=== PATIENT | female | born 1970 | race Caucasian/White ===

== ENCOUNTER 2017-12-03 07:44 | Emergency (ER) | payer MEDICARE, MEDICAID, SELFPAY ==
[2017-12-03 07:47] VITALS: BP 128/97; PULSE 103; RESP 18; TEMP 36.7; O2SAT 97; BMI 20.9
--- NOTE | 2017-12-03 07:52 | ED.GENADULT ---
HPI - General Adult General Chief complaint: Abdominal Pain Stated complaint: ULCER Time Seen by Provider: 12/03/17 07:52 Source: patient Mode of arrival: ambulatory Limitations: no limitations History of Present Illness HPI narrative: patient is a 47-year-old female here for evaluation of ulcer pain for the past 2 days. Patient is on omeprazole, Zantac, sucralfate on a daily basis. She states that for the past 2 days she has had worsening pain of her ulcer. She describes it is epigastric. Some nausea. No vomiting or diarrhea. She states that this is her ulcer pain. She states she has been seen multiple times for this in the past and has had her heart, gallbladder, pancreas all workup in the past. She states this is the exact ulcer pain that she normally gets. She states she normally goes to the hospital and gets a medicine that takes the pain away. Related Data Allergies Allergy/AdvReac Type Severity Reaction Status Date / Time zolpidem [From Ambien] Allergy Severe Nightmare Verified 12/03/17 08:08 methadone AdvReac Mild Dizziness Verified 12/03/17 08:09 Review of Systems Constitutional Denies fever(s) and Denies headache(s) ENT Ears, Nose, Mouth, and Throat: Denies headache(s) Cardiovascular Denies chest pain and Denies dyspnea Respiratory Denies dyspnea Gastrointestinal Gastrointestinal: Reports abdominal pain, Denies change in bowel habits, Denies diarrhea, Reports nausea and Denies vomiting Musculoskeletal Denies myalgias and Denies arthralgias Integumentary/Breasts Denies lesions and Denies rash Neurologic Denies headache(s) PFSH Medical History Bipolar 1 disorder (Acute) Drug abuse (Acute) Gastroesophageal reflux disease (Acute) Surgical History H/O ventricular septal defect repair (Acute) Social History Smoking Status: Never smoker Exam Initial Vital Signs Initial Vital Signs: Vital Signs Temperature 98.1 F 12/03/17 07:47 Pulse Rate 103 H 12/03/17 07:47 Respiratory Rate 18 12/03/17 07:47 Blood Pressure 128/97 H 12/03/17 07:47 Pulse Oximetry 97 12/03/17 07:47 Const General: cooperative, comfortable and No acute distress Orientation: alert, awake and oriented x3 Resp Effort & Inspection: normal respiratory effort Auscultation: clear to auscultation bilaterally Cardio Rate: tachycardic Rhythm: regular rhythm Pulses: radial pulses present GI Inspection: non-distended Palpation: soft, No firm and tender ( epigastric) Skin Lesions: no lesions Rashes: no rashes Neuro General: alert, awake and oriented x3 Extrem General: normal to inspection and capillary refill normal Psych Appearance: grossly normal Course Orders Ordered: ED Orders 12/03/17 09:05 Complete Blood Count AUTO DIFF Stat Comprehensive Metabolic Panel Stat Lipase Stat Pantoprazole Sodium 80 mg/ (Sodium Chloride) 100 mls @ 10 mls/hr IV NOW ONE Stop: 12/03/17 18:38 Last Infusion: 12/03/17 09:49 Dose: 0 mls/hr Admin: 12/03/17 09:22 Dose: 250 mls/hr Discontinued Medications Al Hydrox/Mg Hydrox/Simethicone 20 ml/ Lidocaine HCl 15 ml 0 ml PO NOW ONE Stop: 12/03/17 08:02 Last Admin: 12/03/17 08:10 Dose: 15 ml Vital Signs - 8 hr 12/03/17 07:47 12/03/17 09:28 Temperature 98.1 F Pulse Rate 103 H 95 H Respiratory Rate 18 16 Blood Pressure 128/97 H Blood Pressure [Left Arm] 146/96 H Pulse Oximetry 97 100 Medical Decision Making Lab Data Lab results reviewed: Yes I reviewed the patient's lab results. Result diagrams: 12/03/17 09:05 12/03/17 09:05 Lab Results 12/03/17 12/03/17 Range/Units 09:05 09:05 WBC 9.7 (4.5-11.0) X10^3/uL RBC 4.48 (4.0-5.2) X10^6/uL Hgb 12.5 (12.0-16.0) g/dL Hct 38.0 (36-46) % MCV 84.9 (80-100) fL MCH 27.9 (26-34) PG MCHC 32.9 (30-36) % RDW 16.1 H (11.6-14.8) % Plt Count 440 H (150-400) X10^3/uL Neut % (Auto) 60.9 (50-75) % Lymph % (Auto) 28.2 (25-40) % [place] % (Auto) 8.1 (3-14) % Eos % (Auto) 2.0 (2-4) % Baso % (Auto) 0.8 (0-2) % Neut # (Auto) 5900 (0524-2075) /uL Sodium 141 (137-145) mmol/L Potassium 4.0 (3.4-5.1) mmol/L Chloride 102 (98-107) mmol/L Carbon Dioxide 31 (22-32) mmol/L BUN 10 (7-17) mg/dL Creatinine 0.70 (0.52-1.04) mg/dL Estimated GFR > 60.0 (>60) mL/min BUN/Creatinine Ratio 14.3 (6-22) Glucose 94 (70-100) mg/dL Calcium 9.1 (8.4-10.2) mg/dL Total Bilirubin 0.3 (0.2-1.3) mg/dL AST 27 (14-36) IU/L ALT 23 (9-52) IU/L Alkaline Phosphatase 69 (38-126) U/L Total Protein 7.4 (6.3-8.2) g/dL Albumin 4.2 (3.5-5.0) g/dL Globulin 3.2 (1.7-4.1) g/dL Albumin/Globulin Ratio 1.3 (1.0-2.8) Lipase 176 (23-300) U/L MDM Narrative Medical decision making narrative: patient states that she has a history of gastric ulcers and this feels just like her gastric ulcer. The GI cocktail did little to help her symptoms. I did give her a bolus of Protonix and with these 2 medications she reported great improvement of her symptoms. Her labs were unremarkable. Low suspicion for ACS. She does have a members all, Zantac and Carafate prescriptions with her which she states she does take. Informed her that she needed to contact her primary care doctor to discuss the indications for referral to see Gastroenterology. She was given return precautions. She expressed understanding and agreement with plan. Discharge Plan Departure Patient Disposition: Home Clinical Impression: Abdominal pain, Gastric ulcer Instructions: DI for Abdominal Pain-Adult, DI for Gastric Ulcer Activity Restrictions/Additional Instructions: Today in the emergency department you were given a GI cocktail which included Maalox and viscous lidocaine. You were also given a medication called Protonix through the IV. I do recommend you contact your primary care doctor to discuss the indications for referral to see Gastroenterology. Continue to take all of your medications like we discussed.
[2017-12-03] MEDS: MAG HYDROX/ALUMINUM/SIMETH SUS 20 ML, LIDOCAINE VISCOUS 2% 15 ML PO (08:10)
--- NOTE | 2017-12-03 08:11 | PC.NURSE ---
pt inquiring places to rent, pt states she recieves disability, will get in touch with clinical social work aide.
--- NOTE | 2017-12-03 08:12 | PC.NURSE ---
cell phone [phone]
--- NOTE | 2017-12-03 08:16 | PC.NURSE ---
called social service and they will contact her.
[2017-12-03 09:11] LABS: Add Manual Diff / Slide Review NO; Basophils Percent Auto 0.8 % (0-2); Hemoglobin 12.5 g/dL (12.0-16.0); Lymphocytes Percent Auto 28.2 % (25-40); Mean Corpuscular HGB Conc 32.9 % (30-36); Mean Corpuscular Hemoglobin 27.9 PG (26-34); Mean Corpuscular Volume 84.9 fL (80-100); Monocytes Percent Auto 8.1 % (3-14); Neutrophils Absolute Auto 5900 /uL (3000-5900); Neutrophils Percent Auto 60.9 % (50-75); Platelet Count 440 X10^3/uL (150-400); Red Blood Cell Count 4.48 X10^6/uL (4.0-5.2); Red Cell Distribution Width 16.1 % (11.6-14.8); White Blood Cell Count 9.7 X10^3/uL (4.5-11.0)
[2017-12-03] MEDS: PANTOPRAZOLE 80 MG in SODIUM CHLORIDE 0.9% 100 ML 250 ML IV (09:22)
[2017-12-03 09:26] LABS: Alanine Aminotransferase 23 IU/L (9-52); Albumin 4.2 g/dL (3.5-5.0); Albumin Globulin Ratio 1.3 (1.0-2.8); Alkaline Phosphatase 69 U/L (38-126); Aspartate Aminotransferase 27 IU/L (14-36); BUN Creatinine Ratio 14.3 (6-22); Bilirubin Total 0.3 mg/dL (0.2-1.3); Blood Urea Nitrogen 10 mg/dL (7-17); Calcium 9.1 mg/dL (8.4-10.2); Carbon Dioxide 31 mmol/L (22-32); Chloride 102 mmol/L (98-107); Estimated Glomerular Filt Rate > 60.0 mL/min (>60); Globulin 3.2 g/dL (1.7-4.1); Glucose 94 mg/dL (70-100); HEMOLYSIS 31 (0-50); Lipase 176 U/L (23-300); Sodium 141 mmol/L (137-145); Total Protein 7.4 g/dL (6.3-8.2)
[2017-12-03 09:28] VITALS: BP 146/96; PULSE 95; RESP 16; O2SAT 100
[2017-12-03 10:17] VITALS: BP 145/93; PULSE 92; RESP 18; O2SAT 99
--- NOTE | 2017-12-03 15:39 | CM.SWNOTE ---
Presenting problem: SCARLETT was asked to follow up with this patient who came to the emergency room earlier today. She is homeless and was looking for resources. ED SNACK [employer] MIXER OPERATOR called and left a message asking her to return a call to this Sales Team Manager at the [facility] dept. If I don't hear back, I will call patient when I am on the schedule again next week. Thank you SCARLETT Wilson
== END 2017-12-03 10:18 | disposition home or self-care (01) ==
PROVIDERS: Emergency Provider Emergency Medicine
DX: K25.9 Gastric ulcer, unspecified as acute or chronic, without hemorrhage or perforation (principal)
CPT/HCPCS: 36591; 80053; 83690; 85025; 96365; 99283; 99284; C9113

== ENCOUNTER 2018-02-04 06:09 | Emergency (ER) | payer MEDICARE, OTHER, MEDICAID, SELFPAY ==
[2018-02-04 06:14] VITALS: BP 139/88; PULSE 120; RESP 24; TEMP 36.5; O2SAT 94; BMI 21.7
--- NOTE | 2018-02-04 06:23 | ED_ITS ---
HPI - Anxiety General Chief Complaint: Anxiety Stated Complaint: Anxiety Time Seen by Provider: 02/04/18 06:15 Source: patient and EMS Mode of arrival: EMS Limitations: no limitations History of Present Illness HPI narrative: 47-year-old female, former smoker presents with EMS and a chief complaint of right-sided dental pain and anxiety. The patient has a longstanding history of anxiety and tried taking Vistaril at home with minimal relief. She states that she has had some dental pain and when she noticed which she thought was some swelling it made her very anxious and be came a worsening set of symptoms including shortness of breath, palpitations and nausea , which is classic for her anxiety. She denies fever, chills nor any injury or trauma MD complaint: anxiety Onset (ago): minute(s) Symptoms: dyspnea Severity: mild Quality: constant Place: home History of similar episodes: Yes Provoking factors: emotional stress Relieving factors: nothing Exacerbating factors: nothing Associated symptoms: shortness of breath and palpitations Related Data Previous Rx's Medication Instructions Recorded penicillin V potassium 500 mg PO QID 7 Days #28 tab 02/04/18 Allergies Allergy/AdvReac Type Severity Reaction Status Date / Time zolpidem [From Ambien] Allergy Severe Nightmare Verified 12/03/17 08:08 methadone AdvReac Mild Dizziness Verified 12/03/17 08:09 Review of Systems Review of Systems All systems reviewed & are unremarkable except as noted in HPI and below Constitutional Denies chills, Denies fever(s), Denies lethargy and Denies weakness Eyes Denies change in vision, Denies eye discharge, Denies irritation and Denies loss of vision ENT Ears, Nose, Mouth, and Throat: Denies change in voice, Denies neck pain and Denies sore throat Cardiovascular Denies chest pain, Denies irregular heart rhythm, Denies lightheadedness, Denies palpitations, Denies dyspnea, Denies dyspnea on exertion and Denies orthopnea Respiratory Denies cough, Denies dyspnea, Denies dyspnea on exertion and Denies wheezing Gastrointestinal Gastrointestinal: Denies abdominal pain, Denies change in bowel habits, Denies diarrhea, Denies nausea and Denies vomiting Genitourinary Denies hematuria, Denies flank pain, Denies urinary incontinence and Denies urinary urgency Musculoskeletal Denies neck pain Integumentary/Breasts Denies pruritus, Denies erythema, Denies rash and Denies wounds Neurologic Denies confusion, Denies loss of vision and Denies weakness Psychiatric Reports anxiety, Denies confusion, Denies depression, Denies homicidal ideation and Denies suicidal ideation Endocrine Denies palpitations Hematologic/Lymphatic Denies easy bruising Allergic/Immunologic Denies wheezing [facility] Medical History Bipolar 1 disorder (Acute) Drug abuse (Acute) Gastroesophageal reflux disease (Acute) Surgical History H/O ventricular septal defect repair (Acute) Social History Smoking Status: Never smoker Exam Narrative Exam Narrative: GEN: AOx3 and in mild distress, visibly anxious with pressured speech EYES: Pupils are equal, round, and reactive to light and accommodation. Extraoccular muscles are intact bilaterally. There is no subconjunctival hemorrhage or exudate. ORAL: poor dental hygiene, minimal right lower jaw swelling. No abscess CHEST: Lungs are clear to auscultation bilaterally and free of wheezes, rales, or rhonchi. Heart rate is regular rhythm, there are no murmurs, clicks, rubs, or gallops. There is no chest wall tenderness. ABD: Abdomen is soft and nontender. There is no guarding or rebound. Bowel sounds are normal in all 4 quadrants. There is no mass or organomegaly. EXT: Full painless ROM of all extremities with no loss of sensation or strength. SKIN: Warm, pink, and dry. No erythema or rash Initial Vital Signs Initial Vital Signs: Vital Signs Temperature 97.7 F 02/04/18 06:14 Pulse Rate 120 H 02/04/18 06:14 Respiratory Rate 24 02/04/18 06:14 Blood Pressure 139/88 02/04/18 06:14 Pulse Oximetry 94 02/04/18 06:14 Course Orders Ordered: Discontinued Medications Penicillin V Potassium (Penicillin Vk 250mg Tab Prepack) 1 bottle MISC SEEINSTR ONE Stop: 02/04/18 06:16 Last Admin: 02/04/18 06:25 Dose: 1 bottle Reevaluation(s) Reevaluation #1: patient feeling much better after examination and discussion Vital Signs - 8 hr 02/04/18 06:14 Temperature 97.7 F Pulse Rate 120 H Respiratory Rate 24 Blood Pressure 139/88 Pulse Oximetry 94 Discharge Plan Departure Patient Disposition: Home Clinical Impression: Chronic dental pain Discharge Date/Time: 02/04/18 07:06 Interventions: ED Discharge Assessment Last Done: 02/04/18 06:51 Instructions: DI for Anxiety -- Adult, DI for Dental Pain Activity Restrictions/Additional Instructions: *You have been diagnosed with [ dental pain, anxiety ] *What to do: *Take medications as directed *Follow up with your primary care provider in 2-3 days, call for an appointment. Let them know you were seen in the Emergency Department and that we ask that you be seen in follow up *Return to ER if you should have any new, worsening or concerning symptoms Prescriptions: New penicillin V potassium 500 mg tablet 500 mg PO QID 7 Days Qty: 28 RF: 0
[2018-02-04] MEDS: PENICILLIN 250 MG TAB PREPACK 1 BOTTLE MISC (06:25)
[2018-02-04 06:51] VITALS: BP 141/87; PULSE 112; RESP 20; O2SAT 95
== END 2018-02-04 07:06 | disposition home or self-care (01) ==
PROVIDERS: Emergency Provider Emergency Medicine
DX: K08.9 Disorder of teeth and supporting structures, unspecified (principal); G89.29 Other chronic pain
CPT/HCPCS: 99282